=== PATIENT | male | born 2000 | race Caucasian/White ===

== ENCOUNTER 2023-06-27 10:54 | Outpatient (CLI) | payer OTHER, SELFPAY ==
[2023-06-27 23:18] LABS: Chlamydia DNA Amplified* NOT DETECTED (No Detected); GC DNA Amplified* NOT DETECTED (No Detected)
== END 2023-06-27 10:55 | disposition home or self-care (01) ==
PROVIDERS: Visit Provider Physician Assistant Medical
DX: Z00.00 Encounter for general adult medical examination without abnormal findings (principal); R53.83 Other fatigue; R03.0 Elevated blood-pressure reading, without diagnosis of hypertension; F32.A Depression, unspecified; F41.9 Anxiety disorder, unspecified; Z13.0 Encounter for screening for diseases of the blood and blood-forming organs and certain disorders involving the immune mechanism; Z11.3 Encounter for screening for infections with a predominantly sexual mode of transmission; Z13.29 Encounter for screening for other suspected endocrine disorder; Z13.21 Encounter for screening for nutritional disorder
CPT/HCPCS: 80053; 82306; 82728; 84443; 86592; 86703; 86803; 87340; 87491; 87591

== ENCOUNTER 2025-08-05 13:59 | Outpatient (CLI) | payer OTHER, SELFPAY ==
[2025-08-05 23:17] LABS: Chlamydia DNA Amplified* NOT DETECTED (No Detected); GC DNA Amplified* NOT DETECTED (No Detected)
== END 2025-08-05 14:00 | disposition home or self-care (01) ==
PROVIDERS: PCP Physician Assistant Medical; Visit Provider Physician Assistant Medical
DX: Z11.3 Encounter for screening for infections with a predominantly sexual mode of transmission (principal); E66.9 Obesity, unspecified; Z68.37 Body mass index [BMI] 37.0-37.9, adult
CPT/HCPCS: 80076; 86703; 86706; 86780; 86803; 87340; 87491; 87591